=== PATIENT | male | born 1965 | race African-American/Black ===

== ENCOUNTER 2019-07-20 12:30 | Emergency (ER) | payer BC ==
[~2019-07-20] VITALS: Ht 195.6 cm; Wt 140.0 kg
[2019-07-20] MEDS ORDERED: IPRATROPIUM/ALBUTEROL 0.5-3(2.5)MG/3ML NEB HHN NR ×2 (15:00→16:00)
[2019-07-20] MEDS ORDERED: ACETAMINOPHEN 500MG TABLET PO NR (15:00)
[2019-07-20] MEDS ORDERED: METHYLPREDNISOLONE SOD SUCC 125 MG/2 ML VIAL IM NR (16:00)
[2019-07-20 17:02] VITALS: BP 138/83
== END 2019-07-20 17:03 | disposition home or self-care (01) ==
LOC: ER 12:30
DX: J11.1 Influenza due to unidentified influenza virus with other respiratory manifestations (principal); J45.901 Unspecified asthma with (acute) exacerbation; E11.9 Type 2 diabetes mellitus without complications; K21.9 Gastro-esophageal reflux disease without esophagitis; I10 Essential (primary) hypertension
CPT/HCPCS: 71045; 94640; 96372; 99284; J2930; J7620; Z7610